=== PATIENT | female | born 1970 | race Caucasian/White ===

== ENCOUNTER → 2017-05-23 | Outpatient (CLI) | payer OTHER ==
[~2017-05-23] MED LIST: IOHEXOL 300 MG/ML 100ML VIAL. IV ONE; LEVO25TA4 PO; LISI2.5T PO
--- NOTE | 2017-05-23 11:14 | KCIC ---
CT SOFT TISSUE NECK W/CONTRAST, CT MAXILLOFACIAL WO CONTRAST dated 05/23/2017 10:30 AM Indication: Chronic sinusitis throat pain, right-sided ear pain. Comparison: No comparison is available. Technique: Contiguous axial imaging of the soft tissue neck performed after the intravenous administration of 90 cc Omnipaque 300. Precontrast imaging through the maxillofacial bones obtained with thin cut coronal and sagittal reconstruction. One or more of the following individualized dose reduction techniques were utilized for this examination: 1. Automated exposure control 2. Adjustment of the mA and/or kV according to patient size 3. Use of iterative reconstruction technique Findings: Subtotal opacification of the bilateral frontal bilateral ethmoid and right sphenoid sinuses. Partial opacification and diffuse mucosal thickening of the bilateral maxillary and left sphenoid sinuses. The ostiomeatal units are occluded. There is mild nasal septal deviation to the right. No bony destructive process or periostitis. Mastoid air cells and middle ears are clear. Images soft tissue neck show patent central airways. No apparent mucosal lesion. There is some soft tissue thickening of the lingual and palatine tonsils. No significant prevertebral soft tissue swelling or soft tissue gas. Epiglottis and aryepiglottic folds are unremarkable. Thyroid gland unremarkable. Bilateral parotid gland and submandibular gland are symmetric. No significant cervical chain lymphadenopathy. There is a there is a borderline enlarged jugulodigastric lymph node on the left that measures up to 11 mm long axis Limited images of the lung apices are clear. No apparent bony abnormality. Mild atherosclerotic calcification of the right carotid bifurcation without significant stenosis. IMPRESSION MAXILLOFACIAL: 1. Moderate pansinus disease with occlusion of the bilateral ostiomeatal unit. IMPRESSION SOFT TISSUE NECK: 1. No acute abnormality. 2. Mild soft tissue thickening of the palatine and lingual tonsils. Consider mild pharyngitis. 3. Borderline enlarged jugulodigastric lymph node on the left, also nonspecific. Electronically signed by: Karel Chacon MD (05/23/2017 11:11 AM) [id number]
== END | disposition home or self-care (01) ==
LOC: KCIC CT 09:34
PROVIDERS: ATTEND Otolaryngology
DX: J02.9 Acute pharyngitis, unspecified (principal); I10 Essential (primary) hypertension; J32.4 Chronic pansinusitis; R59.9 Enlarged lymph nodes, unspecified
CPT/HCPCS: 70486; 70491; Q9967